=== PATIENT | female | born 1955 | race Caucasian/White ===

== ENCOUNTER → 2018-03-02 | Outpatient (CLI) | payer BC ==
--- NOTE | 2018-03-04 14:26 | US ---
EXAMINATION TYPE: US renal artery duplex complet DATE OF EXAM: 03/02/2018 COMPARISON: NONE CLINICAL HISTORY: I10 Hypertension. MEASUREMENTS: RENAL SIZE: Rt Kidney: 12.1 x 4.9 x 5.0cm Lt Kidney: 11.6 x 5.7 x 5.0cm RESISTANCE INDEX Right: 0.75 Left: 0.63 RA/AO RATIO (< 3.5 ) Right: 2.1 Left: 1.8 RA VELOCITY ( < 180 cm/s) Right: 152cm/s Left: 129cm/s Heavy calcifications within aorta. Echogenic focus right kidney, probable stone. Lower pole of right kidney obscured by bowel gas, right lower arcuate artery obscured. No evidence of renal artery stenosis. IMPRESSION: 1. No sonographic evidence of renal arterial stenosis. 2. Probable right renal nonobstructing solitary subcentimeter calculus. 3. Extensive atherosclerosis of the abdominal aorta and its branches. No suspicious extra-axial fluid collection is seen. No acute intracranial hemorrhage, midline shift or mass effect is identified.
== END | disposition home or self-care (01) ==
LOC: RADUSMAIN 07:45
PROVIDERS: ATTEND Family Medicine
DX: I70.0 Atherosclerosis of aorta (principal)
CPT/HCPCS: 93975

== ENCOUNTER → 2019-08-15 | Outpatient (CLI) | payer MEDICARE, BC ==
--- NOTE | 2019-08-15 15:16 | BD ---
EXAMINATION TYPE: Axial Bone Density DATE OF EXAM: 08/15/2019 COMPARISON: NONE CLINICAL HISTORY: 64 YR OLD FEMALE....ICD-10 CODE: Z78.0 POST MENOPAUSAL Height: 66.2 Weight: 136 FRAX RISK QUESTIONS: Current Tobacco Use: QUIT 19 YRS AGO RISK FACTORS HISTORY OF: NO FXs > 50 YRS OLD Active: YES Postmenopausal woman: YES, ABOUT, 51 YRS OLD Take estrogen and/or progesterone medications: YES, SAMM-PRO SINCE 51 YRS OLD, 13 YRS Hyperparathyroidism: NO Adrenal Insufficiency: NO MEDICATIONS: Prednisone or other steroids: YES, ON AND OFF FOR ILLNESS AND SEASONAL Additional Medications: BP MEDS, CALCIUM Additional History: HYPERTENSION EXAM MEASUREMENTS: Bone mineral densitometry was performed using the GIROPTIC System. Bone mineral density as measured about the Lumbar spine is: ----- L1-L4(G/cm2): 1.528 T Score Values are as follows: ----- L1: 2.4 ----- L2: 2.3 ----- L3: 2.9 ----- L4: 3.6 ----- L1-L4: 2.9 Bone mineral density FIRST DEXS SCAN.....BASELINE STUDY Bone mineral density about the R hip (g/cm2): 1.047 Bone mineral density about the L hip (g/cm2): 1.106 T Score values are as follows: -----R Neck: -0.4 -----L Neck: 0.7 -----R Total: 0.3 -----L Total: 0.8 Bone mineral density BASELINE STUDY FRAX%s: THERE IS A 10.4% CHANCE FOR A MAJOR OSTEOPOROTIC FX AND A 0.6% FOR HIP.....PROBABILITY FOR FX IN 10 YRS TIME IMPRESSION: Normal (Values between +1 and -1 indicate normal bone mass). Consider repeating this study in 5 year s or sooner if there is some new clinical indication. NOTE: T-SCORE=SD OF THE YOUNG ADULT MEAN.
== END | disposition home or self-care (01) ==
LOC: RADBDWWP 13:16
PROVIDERS: ATTEND Family Medicine
DX: Z78.0 Asymptomatic menopausal state (principal)
CPT/HCPCS: 77080

== ENCOUNTER 2023-06-02 05:36 | Day surgery (SDC) | payer MEDICARE, BC ==
[2023-06-02 06:24] VITALS: RESP 16; TEMP 96.9
[2023-06-02] MEDS ORDERED: ONDANSETRON 4 MG/2 ML VIAL ONE (06:40)
[2023-06-02] MEDS ORDERED: DEXAMETHASONE SOD PHOSPHATE 4 MG/ML 1 ML VIAL IVP ONE (06:55)
[2023-06-02] MEDS ORDERED: MIDAZOLAM 2 MG/2 ML VIAL IVP ONE (06:58)
[2023-06-02] MEDS ORDERED: fentaNYL (PF) 50 MCG/ML 2 ML AMP IVP ONE (06:58)
[2023-06-02] MEDS ORDERED: LACTATED RINGERS 1,000 ML IV ONE (07:13)
--- NOTE | 2023-06-02 07:17 | P.ANPRN ---
Procedure Note - Anesthesia - Nerve Block Performed Left Adductor Canal Single Date of Procedure: 06/02/23 Procedure Start Time: 06:57 Procedure Stop Time: 07:11 Location of Patient: PreOp Indication: Acute Post-Operative Pain, Requested by Surgeon Specifically requested for management of pain by DrZach: Willy Sanz Sedation Type: Sedate with meaningful contact maintained Preparation: Sterile Prep Position: Supine Catheter: None Needle Types: Pajunk Needle Gauge: 21 Ultrasound used to visualize needle placement: Yes Ultrasound used to observe medication spread: Yes Injectate: 0.5% Ropivacaine (see comment for volume) (15 mL) Blood Aspirated: No Pain Paresthesia on Injection Noted: No Resistance on Injection: Normal Image Stored and Saved: Yes Events: Uneventful and Well Tolerated
--- NOTE | 2023-06-02 07:24 | P.ANPRN ---
Procedure Note - Anesthesia - Nerve Block Performed Left Popliteal Single Date of Procedure: 06/02/23 Procedure Start Time: 06:57 Procedure Stop Time: 07:11 Location of Patient: PreOp Indication: Acute Post-Operative Pain, Requested by Surgeon Specifically requested for management of pain by DrZach: Willy Sanz Sedation Type: Sedate with meaningful contact maintained Preparation: Sterile Prep Position: Right Lateral Catheter: None Needle Types: Pajunk Needle Gauge: 21 Ultrasound used to visualize needle placement: Yes Ultrasound used to observe medication spread: Yes Injectate: 0.5% Ropivacaine (see comment for volume) (20 mL) Blood Aspirated: No Pain Paresthesia on Injection Noted: No Resistance on Injection: Normal
[2023-06-02] MEDS ORDERED: ePHEDrine 50 MG/ML 1 ML VIAL ONE (07:27)
[2023-06-02] MEDS ORDERED: DEXAMETHASONE SOD PHOSPHATE 4 MG/ML 1 ML VIAL ONE (07:27)
[2023-06-02] MEDS ORDERED: PROPOFOL 10 MG/ML 20 ML VIAL IV ONE (07:27)
[2023-06-02] MEDS ORDERED: MIDAZOLAM 2 MG/2 ML VIAL ONE (07:27)
[2023-06-02] MEDS ORDERED: LIDOCAINE 1% INJ 10MG/ML (20 ML MDV) ONE (07:27)
[2023-06-02] MEDS ORDERED: ROPIVACAINE 5 MG/ML 30 ML VIAL ONE (07:27)
[2023-06-02] MEDS ORDERED: fentaNYL (PF) 50 MCG/ML 2 ML AMP ONE (07:27)
[2023-06-02] MEDS ORDERED: GLYCOPYRROLATE 0.2 MG/ML 2 ML VIAL ONE (07:27)
[2023-06-02] MEDS ORDERED: SODIUM CHLORIDE 0.9% (PF) 10 ML VIAL ONE (07:27)
[2023-06-02] MEDS ORDERED: ceFAZolin 1,000 MG in SODIUM CHLORIDE 0.9% 1,000 ML IRRIGATION ONE (07:35)
--- NOTE | 2023-06-02 09:21 | P.OP ---
Date of Procedure: 06/02/23 Preoperative Diagnosis: Spontaneous rupture extensor tendon left ankle (tibialis anterior) Postoperative Diagnosis: Same Procedure(s) Performed: 1. Extensor hallucis longus tendon transfer left ankle 2. Gastroc recession left leg Implants: Arthrex 4.75 mm interference screw Anesthesia: SHAMEKA Surgeon: Willy Sanz Estimated Blood Loss (ml): 2 Pathology: none sent Condition: stable Disposition: PACU Description of Procedure: Prior to the patient being brought to the operative room, anesthesia administered a nerve block on the left lower extremity. Then the patient was brought into the operating room and placed on the table in the supine position. Timeout was taken to confirm correct patient identifiers, correct laterally of surgery, and correct procedure. Once all staff in the room were in agreement with the timeout, the patient was induced and placed under general anesthesia. A well-padded tourniquet was placed on the left thigh and the left leg was prepped and draped in usual manner. The left leg was exsanguinated and the tourniquet inflated to 250 mmHg. Attention was first directed over the posterior medial aspect of the calf. An incision was made over the Achilles tendon aponeurosis distal to the gastroc muscle belly. The incision was deepened down to the subcutaneous tissue there for to identify, avoid, and retract any neurovascular structures and cauterize any bleeding vessels. Blunt dissection was continued down to the deep fascia. The fascia was incised over the aponeurosis and then the tissue was reflected bluntly from the aponeurosis. The aponeurosis is mobilizing transverse incision was made from lateral to medial through the aponeurosis taking care to prevent significant trauma to the underlying muscle belly. Once released ankle was dorsiflexed and a 1.5 cm to 2.0 cm gap appeared indicating a full release. The wound was irrigated thoroughly with antibiotic saline. Subcutaneous closure was done with 4-0 Monocryl and skin closure done with alban. Then attention was directed to the dorsal aspects of the foot near the first metatarsal phalangeal joint. A linear incision was made just medial to the extensor hallucis longus tendon just proximal to the first metatarsal phalangeal joint. The incision was deepened down to the saphenous tissue careful to identify, avoid, and retract any neurovascular structures and cauterize any bleeding vessels. Blunt dissection was then carried down to the extensor hallucis longus tendon as well as the extensor digitorum brevis tendon. With the great toe held in a rectus rectus position a [id number] anastomosis of the distal portion of the extensor hallucis longus was sutured to the extensor digitorum brevis tendon. Once that was completed the extensor hallucis longus tendon was transected proximal to the repair site. Then attention was directed over the anterior medial ankle which was previously marked in the preop area. A small incision was made over the extensor hallucis longus and tibia as anterior tendons the superior to the tensor retinaculum. The incision was deepened down to the saphenous tissue careful to identify, avoid, and retract any neurovascular structures and cauterize any bleeding vessels. The superior half of the extensor retinaculum was opened to visualize the tendons. The tibia as anterior tendon was identified first was noted to be thickened. Then the extensor hallucis longus tendon was identified and mobilized and pulled through the surgical site. Then attention was directed over the medial cuneiform where a linear incision was made. It was deepened down to the saphenous tissue careful to identify, avoid, and retract any neurovascular structures and cauterize any bleeding vessels. Blunt dissection was continued down to the deep fascia. The tendon sheath of the tibialis anterior was identified and entered. A blunt hemostat was inserted at the insertion point and then superiorly through the tibialis anterior tendon sheath. A whipstitch was placed through the distal stump of the extensor hallucis longus tendon. The hemostat that was within the tibialis anterior tendon sheath was used to grasp the suture and pulled the extensor hallucis longus tendon through the tibialis anterior tendon sheath near the medial cuneiform attachment. Utilizing fluoroscopic guidance, a guidewires placed through the dorsal aspect of the medial cuneiform in a plantar direction. A 5.0 mm reamer was used over the wire was drilled from dorsal to plantar through both cortices The suture from the whipstitch was then placed in the eyelet in the wire and then the wire was pulled through the plantar surface of the foot along with the suture. Tension was placed on the suture to bring the tendon within the tunnel and the medial cuneiform. With the ankle held in neutral position to slight dorsiflexion, the interference screw was inserted into the bony tunnel and advanced until it was fully seated and locked the tendon in place. At that point, the ankle alignment was a dilated and noted to be in neutral position. Attention was redirected to the more superior incision, where a [id number] anastomosis of the tibialis anterior and extensor hallucis longus tendons was performed. This is done while holding the tibia as anterior under tension. Once completed all wounds were thoroughly irrigated with antibiotic saline. The superior retinaculum was repaired with 2-0 Vicryl. Subcutaneous closure of all incisions was done with 4-0 Monocryl. Skin closure to all incisions was done with alban. An Arthrex jumpstart dressings were placed over all incisions. A bulky dry dressings applied to the left leg and foot. The tourniquet was released and capillary refill return to all digits on the left foot. The patient was then placed in a well-padded, well molded plaster posterior mold/sugar tong splint. The ankle was held in neutral position to slight dorsiflexion until the splint was dried. Anesthesia was reversed and the patient was taken recovery with vital signs stable.
[2023-06-02 11:17] VITALS: BP 160/78; PULSE 52
== END 2023-06-02 11:38 | disposition home or self-care (01) ==
LOC: OR 05:36
PROVIDERS: ATTEND Podiatrist
DX: M66.272 Spontaneous rupture of extensor tendons, left ankle and foot (principal); M21.73 Unequal limb length (acquired), ulna and radius; G89.18 Other acute postprocedural pain; I10 Essential (primary) hypertension; F10.90 Alcohol use, unspecified, uncomplicated; Z79.899 Other long term (current) drug therapy; Z82.49 Family history of ischemic heart disease and other diseases of the circulatory system; Z87.891 Personal history of nicotine dependence; Z79.82 Long term (current) use of aspirin
CPT/HCPCS: 64447; 64445; 27687; 27690; C1713; J2250; J1100; J0690 ×2; J2405; J2001; J3010; J2795; J2704